=== PATIENT | male | born 1985 | race Caucasian/White ===

== ENCOUNTER 2018-09-29 16:48 | Observation (INO) ==
--- NOTE | 2018-09-29 17:11 | Emergency Department Note ---
Disposition Clinical Impression: Suicidal ideation Drug overdose Qualifiers: Encounter type: initial encounter Injury intent: intentional self-harm Qualifi ed Code(s): T50.902A - Poisoning by unspecified drugs, medicaments and biological substances, intentional self-harm, initial encounter Disposition: Admitted As Inpatient Condition: Good Time of Disposition: 22:50 General Adult HPI - General Chief complaint: ED Overdose Stated complaint: od Time Seen by Provider: 09/29/18 17:01 Source: patient, EMS Mode of arrival: EMS Limitations: altered mental status Nursing Notes Reviewed: Yes Vital Signs Reviewed: Yes - History of Present Illness HPI Narrative: Patient brought in for possible overdose. He states that he did use methamphetamine as well as possible FLACCA. Patient states he did this in an attempt to kill himself. Patient is hallucinating at this time. He states that he did smoke symmetric and a "bubble." He reports that he did have some chest pain prior to coming to the ER but denies this at this time. Patient has a flight of ideas. He says "watch this" and then lays back on the bed and hold his breath. He then abruptly sits up and alert everyone that he is Kahlil and he has come back from the . Pain Scale: 0 - Related Data Previous Rx's Medication Instructions Recorded Divalproex (12 HR) [Depakote (12 500 mg PO BID #60 tablet. 11/24/15 HR)] TraZODone 50 mg PO HS PRN #30 tablet 11/24/15 risperiDONE [RisperDAL] 1 mg PO BID #60 tablet 11/24/15 Azithromycin [Zithromax] 250 mg PO DAILY #6 tablet 08/23/16 Ondansetron ODT [Zofran ODT] 4 mg SL Q8HR #10 tab.rapdis 09/16/16 Allergies Allergy/AdvReac Type Severity Reaction Status Date / Time doxycycline AdvReac Hives Verified 08/23/16 08:46 All systems ED: reviewed and negative except as stated. Review of Systems: As Per HPI Cardiovascular: Reports: chest pain, palpitations Respiratory: Denies: dyspnea Psychiatric: Reports: suicidal thoughts, visual hallucinations Past Medical History - Past Medical History Attestation: Yes The following information was validated with the patient. Medical history: Reports: myocardial infarction, other Surgical history: Reports: no surgical history Psychiatric history: Reports: anxiety, bipolar, previous psychiatric hospitalization, other - Social History Smoking Status: Current every day smoker Smokeless Tobacco Status: No Alcohol use: Reports: rarely Drug use: Reports: cocaine, opiates, marijuana, methamphetamine Physical Exam - General Limitations: altered mental status General appearance: appears intoxicated, other - Head Head exam: atraumatic, normocephalic, normal inspection - Eye Eye exam: Present: normal appearance, PERRL, EOMI - ENT ENT exam: normal exam, normal oropharynx, mucous membranes moist - Neck Neck exam: Present: normal inspection, full ROM, trachea midline - Chest Chest inspection: Present: normal inspection, symmetric chest wall rise - Respiratory Respiratory exam: Present: normal lung sounds bilaterally. Absent: respiratory distress, accessory muscle use - Cardiovascular Cardiovascular exam: Present: regular rate, normal rhythm, normal heart sounds - Abdominal Exam Abdominal exam: Present: soft, Non-Tender. Absent: tenderness, distention, guarding, rebound, rigidity, organomegaly - Extremities Exam Extremities exam: Present: normal inspection, full ROM, normal capillary refill. Absent: tenderness, pedal edema - Neurological Exam Neurological exam: Present: alert - Psychiatric Psychiatric exam: Present: agitated, anxious, manic - Skin Skin exam: Present: warm, dry, intact, normal color. Absent: rash, diaphoresis Course Course Narrative: Basic lab evaluation and psychiatric evaluation on patient. We will provide patient with some Ativan at this time. We will also get an EKG and troponin secondary to pain he did have some chest pain prior to coming. Patient is pink slipped at this time for his suicidal attempt. He does have a history of bipolar and schizophrenia that he states that he self medicates for. - Reevaluation(s) Reevaluation #1: Patient accepted for admission by psychiatric team. We will omit patient to the hospital this time. Time: 22:50 Vital Signs Temperature 98.7 F 09/29/18 16:52 Pulse Rate 114 09/29/18 16:52 Respiratory Rate 20 09/29/18 16:52 Blood Pressure 155/100 09/29/18 16:52 O2 Sat by Pulse Oximetry 100 09/29/18 16:52 Temperature 98.7 F 09/29/18 16:52 Pulse Rate 84 09/29/18 18:00 Respiratory Rate 15 09/29/18 18:00 Blood Pressure 145/87 09/29/18 18:00 O2 Sat by Pulse Oximetry 97 09/29/18 18:00 Oxygen Delivery Oxygen Delivery Room Air Medical Decision Making - Medical Records Medical records reviewed: Yes I reviewed the patient's medical records. - Lab Data Lab results reviewed: Yes I reviewed the patient's lab results. Result diagrams: 09/29/18 17:27 09/29/18 17:27 Lab Results 09/29/18 09/29/18 09/29/18 Range/Units 17:12 17:20 17:23 WBC (4.3-11.1) K/mcL RBC (4.19-5.50) M/mcL Hgb (12.9-16.9) g/dL Hct (37.5-50.1) % MCV (83.0-100.0) fL MCH (28.0-33.3) pg MCHC (31.6-35.5) g/dL RDW (11.5-14.5) % Plt Count (140-400) K/mcL MPV (9.4-12.4) fL Immature Gran % (0-4) % Seg Neutrophils % % Lymphocytes % % Monocytes % % Eosinophils % % Basophils % % Neutrophils # (1.6-8.9) K/mcL Lymphocytes # (0.6-4.6) K/mcL Monocytes # (0.0-1.3) K/mcL Eosinophils # (0.0-0.6) K/mcL Basophils # (0.0-0.2) K/mcL Reactive Lymphocytes (Not Present) Sodium (136-145) mEq/L Potassium (3.5-5.1) mEq/L Chloride (98-107) mEq/L Carbon Dioxide (23-29) mEq/L BUN (6-20) mg/dL Creatinine (0.70-1.30) mg/dL Est GFR ( Amer) (> 60) Est GFR (Non-Af Amer) (> 60) BUN/Creatinine Ratio (6-26) Glucose (70-105) mg/dL POC Glucose 87 (70-99) mg/dL Calculated Osmolality (280-300) Calcium (8.6-10.3) mg/dL Total Bilirubin (0.3-1.0) mg/dL Direct Bilirubin (0.0-0.2) mg/dL Indirect Bilirubin (0.0-1.2) mg/dL AST (13-39) Units/L ALT (7-52) Units/L Alkaline Phosphatase (34-104) Units/L Troponin I (< 0.04) ng/mL Serum Total Protein (6.4-8.9) g/dL Albumin (3.5-5.7) g/dL Globulin (2.4-3.5) g/dL Albumin/Globulin Ratio (1.1-2.2) Urine Color Dark Yellow (Yellow) Urine Clarity Clear (Clear) Urine pH 6.5 (5.0-8.0) pH Units Ur Specific [place] 1.026 H (1.010-1.025) Urine Protein 30 H (Neg-Trace) mg/dL Urine Glucose (UA) Normal (Normal) mg/dL Urine Ketones 15 H (Negative) mg/dL Urine Blood Negative (Negative) Urine Nitrite Negative (Negative) Urine Bilirubin Small H (Negative) Urine Urobilinogen Normal (Normal) mg/dL Ur Leukocyte Esterase Negative (Negative) Urine Microscopic RBC 0-3 (0-3) per hpf Urine Microscopic WBC 0-3 (0-3) per hpf Ur Squamous Epith Cells Moderate H (None-Few) per lpf Urine Bacteria None Seen (None-Few) per hpf Hyaline Casts None Seen (None-Few) per lpf Salicylates (15.0-30.0) mg/dL Urine Opiates Screen Negative (Rjsira=704) ng/mL Acetaminophen (10-20) mcg/mL Ur Barbiturates Screen Negative (Gkbfnw=536) ng/mL Ur Phencyclidine Scrn Negative (Cutoff=25) ng/mL Ur Amphetamines Screen Positive H (Yqeabt=8742) ng/mL U Benzodiazepines Scrn Negative (Frslun=137) ng/mL Urine Cocaine Screen Negative (Cutoff= 300) ng/mL U Marijuana (THC) Screen Negative (Cutoff = 50) ng/mL Ur Drug Screen Interp See Below Ethyl Alcohol (Less than 10) mg/dL 09/29/18 09/29/18 Range/Units 17:27 17:27 WBC 13.0 H (4.3-11.1) K/mcL RBC 4.82 (4.19-5.50) M/mcL Hgb 14.5 (12.9-16.9) g/dL Hct 42.4 (37.5-50.1) % MCV 88.0 (83.0-100.0) fL MCH 30.1 (28.0-33.3) pg MCHC 34.2 (31.6-35.5) g/dL RDW 13.2 (11.5-14.5) % Plt Count 325 (140-400) K/mcL MPV 10.3 (9.4-12.4) fL Immature Gran % 0.3 (0-4) % Seg Neutrophils % 67.5 % Lymphocytes % 23.8 % Monocytes % 6.4 % Eosinophils % 1.2 % Basophils % 0.8 % Neutrophils # 8.8 (1.6-8.9) K/mcL Lymphocytes # 3.1 (0.6-4.6) K/mcL Monocytes # 0.8 (0.0-1.3) K/mcL Eosinophils # 0.2 (0.0-0.6) K/mcL Basophils # 0.1 (0.0-0.2) K/mcL Reactive Lymphocytes Present A (Not Present) Sodium 139 (136-145) mEq/L Potassium 4.1 (3.5-5.1) mEq/L Chloride 103 (98-107) mEq/L Carbon Dioxide 23 (23-29) mEq/L BUN 19 (6-20) mg/dL Creatinine 1.11 (0.70-1.30) mg/dL Est GFR ( Amer) > 60 (> 60) Est GFR (Non-Af Amer) > 60 (> 60) BUN/Creatinine Ratio 17 (6-26) Glucose 86 (70-105) mg/dL POC Glucose (70-99) mg/dL Calculated Osmolality 290 (280-300) Calcium 10.1 (8.6-10.3) mg/dL Total Bilirubin 1.2 H (0.3-1.0) mg/dL Direct Bilirubin 0.2 (0.0-0.2) mg/dL Indirect Bilirubin 1.0 (0.0-1.2) mg/dL AST 26 (13-39) Units/L ALT 18 (7-52) Units/L Alkaline Phosphatase 58 (34-104) Units/L Troponin I < 0.03 (< 0.04) ng/mL Serum Total Protein 7.5 (6.4-8.9) g/dL Albumin 4.8 (3.5-5.7) g/dL Globulin 2.7 (2.4-3.5) g/dL Albumin/Globulin Ratio 1.8 (1.1-2.2) Urine Color (Yellow) Urine Clarity (Clear) Urine pH (5.0-8.0) pH Units Ur Specific [place] (1.010-1.025) Urine Protein (Neg-Trace) mg/dL Urine Glucose (UA) (Normal) mg/dL Urine Ketones (Negative) mg/dL Urine Blood (Negative) Urine Nitrite (Negative) Urine Bilirubin (Negative) Urine Urobilinogen (Normal) mg/dL Ur Leukocyte Esterase (Negative) Urine Microscopic RBC (0-3) per hpf Urine Microscopic WBC (0-3) per hpf Ur Squamous Epith Cells (None-Few) per lpf Urine Bacteria (None-Few) per hpf Hyaline Casts (None-Few) per lpf Salicylates < 2.5 L (15.0-30.0) mg/dL Urine Opiates Screen (Gdeudm=158) ng/mL Acetaminophen < 10 L (10-20) mcg/mL Ur Barbiturates Screen (Rujzuz=944) ng/mL Ur Phencyclidine Scrn (Cutoff=25) ng/mL Ur Amphetamines Screen (Bkkbru=3393) ng/mL U Benzodiazepines Scrn (Ldldjg=174) ng/mL Urine Cocaine Screen (Cutoff= 300) ng/mL U Marijuana (THC) Screen (Cutoff = 50) ng/mL Ur Drug Screen Interp Ethyl Alcohol < 10 (Less than 10) mg/dL - EKG Data EKG #1 EKG attestation: Yes I reviewed and interpreted this EKG. EKG results narrative: Sinus tachycardia at a rate of 104. ME interval is 142. QRS duration is 85. QT is 333. QTC is 438. No signs of acute ischemia. Good R-wave progression. No signs of WPW or Brugada. No significant change from previous EKG dated 10/05/2010. Attestation Statement - Attestation Attestation: I, Oleg Hidalgo, examined this patient and my medical decision-making was reviewed with the G[employer] OPERATOR/PA/Advanced Practice Nurse/Resident Physician. I agree with the documented findings, disposition and treatment plan as described except to the extent set forth below. 32-year-old male presents emergency Department with acute psychosis. Patient believes that he is God and that he can dine come back to life at will. Patient multiple times during the initial evaluation and states "wait for "and then would drop his head down to his side and pretending to be . There is no change in his vital signs during these events. He with then wake up and say "I diabetic and came back to life" patient admitted to using methamphetamines and flakka prior to arrival. Patient denies homicidal ideation or suicidal ideation. Patient admits that he has a history of bipolar disorder and schizoaffective disorder. He states he does not take medications than that he "self medicates". Patient was redirectable during the examination. He will be medically cleared and evaluated by behavioral health. His drug abuse likely plays a large part in his acute psychosis.
[2018-09-29] MEDS ORDERED: *HR* LORazepam 2 MG/ML VIAL IVP STA (17:16)
[2018-09-29 17:47] LABS: Bilirubin,Urine Small (Negative); Blood,Urine Negative (Negative); Clarity,Urine Clear (Clear); Color,Urine Dark Yellow (Yellow); Glucose,Urine (UA) Normal (Normal); Ketones,Urine 15 mg/dL (Negative); Leukocyte Esterase,Urine Negative (Negative); Nitrite,Urine Negative (Negative); PH,Urine 6.5 pH Units (5.0-8.0); Protein,Urine 30 mg/dL (Neg-Trace); Specific Gravity,Urine 1.026 (1.010-1.025); Urobilinogen,Urine Normal (Normal)
[2018-09-29 17:48] LABS: Basophils # 0.1 K/mcL (0.0-0.2); Basophils % 0.8 %; Eosinophils # 0.2 K/mcL (0.0-0.6); Eosinophils % 1.2 %; Hematocrit 42.4 % (37.5-50.1); Hemoglobin 14.5 g/dL (12.9-16.9); Immature Granulocytes % 0.3 % (0-4); Lymphocytes # 3.1 K/mcL (0.6-4.6); Lymphocytes % 23.8 %; Mean Corpuscular HGB Conc 34.2 g/dL (31.6-35.5); Mean Corpuscular Hemoglobin 30.1 pg (28.0-33.3); Mean Platelet Volume 10.3 fL (9.4-12.4); Monocytes # 0.8 K/mcL (0.0-1.3); Monocytes % 6.4 %; Platelet Count 325 K/mcL (140-400); Red Blood Count 4.82 M/mcL (4.19-5.50); Red Cell Distribution Width 13.2 % (11.5-14.5); Segmented Neutrophils % 67.5 %
[2018-09-29 17:49] LABS: Neutrophils # 8.8 K/mcL (1.6-8.9)
[2018-09-29 17:50] LABS: Bacteria,Urine None Seen per hpf (None-Few); Hyaline Casts,Urine None Seen per lpf (None-Few); RBC,Urine 0-3 per hpf (0-3); Squamous Epithelial Cell,Urine Moderate per lpf (None-Few); WBC,Urine 0-3 per hpf (0-3)
[2018-09-29 18:01] LABS: Amphetamine Screen,Urine Positive ng/mL (Cutoff=1000); Barbiturate Screen,Urine Negative ng/mL (Cutoff=200); Benzodiazepines Screen,Urine Negative ng/mL (Cutoff=200); Cannabinoid Screen,Urine Negative ng/mL (Cutoff = 50); Cocaine Screen,Urine Negative ng/mL (Cutoff= 300); Opiate Screen,Urine Negative ng/mL (Cutoff=300); Phencyclidine Screen,Urine Negative ng/mL (Cutoff=25)
[2018-09-29 18:09] LABS: Acetaminophen < 10 mcg/mL (10-20); Alanine Aminotransferase 18 Units/L (7-52); Albumin 4.8 g/dL (3.5-5.7); Albumin/Globulin Ratio 1.8 (1.1-2.2); Alkaline Phosphatase 58 Units/L (34-104); Aspartate Amino Transferase 26 Units/L (13-39); BUN/Creatinine Ratio 17 (6-26); Bilirubin,Direct 0.2 mg/dL (0.0-0.2); Bilirubin,Total 1.2 mg/dL (0.3-1.0); Blood Urea Nitrogen 19 mg/dL (6-20); Calcium 10.1 mg/dL (8.6-10.3); Carbon Dioxide 23 mEq/L (23-29); Chloride 103 mEq/L (98-107); Ethanol < 10 mg/dL (Less than 10); Globulin 2.7 g/dL (2.4-3.5); Glucose 86 mg/dL (70-105); Osmolality,Calculated 290 (280-300); Potassium 4.1 mEq/L (3.5-5.1); Reactive Lymphocytes Present (Not Present); Salicylate < 2.5 mg/dL (15.0-30.0); Sodium 139 mEq/L (136-145); Total Protein 7.5 g/dL (6.4-8.9); Troponin I < 0.03 ng/mL (< 0.04); eGFR For Non-African Americans > 60 (> 60)
[2018-09-30] MEDS ORDERED: Haloperidol Lactate 5 MG/ML VIAL IM PRN (00:10)
[2018-09-30] MEDS ORDERED: traZODone 50 MG TABLET PO PRN (00:10)
[2018-09-30] MEDS ORDERED: MOM Conc 10 ML UD.LIQ PO PRN (00:10)
[2018-09-30] MEDS ORDERED: hydrOXYzine pamoate 25 MG CAPSULE PO PRN (00:10)
[2018-09-30] MEDS ORDERED: Ibuprofen 400 MG TABLET PO PRN (00:10)
[2018-09-30] MEDS ORDERED: Nicotine 2 MG GUM BC PRN (00:10)
[2018-09-30] MEDS ORDERED: *HR* LORazepam 2 MG/ML VIAL IM PRN (00:10)
[2018-09-30] MEDS ORDERED: *HR* LORazepam 1 MG TABLET PO PRN (00:10)
[2018-09-30] MEDS ORDERED: Mag Hydrox/Al Hydrox/Simeth 30 ML UDC PO PRN (00:10)
[2018-09-30 09:23] VITALS: BP 118/70
[2018-09-30] MEDS ORDERED: Divalproex (12 HR) 500 MG TABLET PO SCH (09:45)
--- NOTE | 2018-09-30 09:48 | Discharge Summary ---
Date of Encounter: 09/30/18 Time of Encounter: 09:45 History of Present Illness Chief complaint: "I took some bad meth" Admitted From: Emergency Dept History of Present Illness: Mr. Lou is a 32 year old male who presented to the ER s/p OD on drugs. At the time it was thought might have been an attempt to kill himself but now he denies this and said he was just trying to get high. He states that he did use methamphetamine as well as possible FLACCA. He was hallucinating when he came in to the emergency department. He states that he did smoke symmetric and a "bubble." He reports that he did have some chest pain prior to coming to the ER but denies this at this time. Patient in the emergency room had flight of ideas. He said "watch this" and then lays back on the bed and hold his breath. He then abruptly sits up and alert everyone that he is Kahlil and he has come back from the . Since being admitted to he has slapped and the drugs are clear from his system. He no longer has any delusions. He does not believe he is Kahlil Travis. He is not experiencing hallucinations. He is alert and oriented 4. He denies any suicidal thoughts, ideations, or plans. He is future oriented and says he has 3 children that he wants to live for. He is interested in getting clean from drugs but says he does not want linkage at this time as he would like to do it himself. We did discuss that this is difficult and it is advised to have resources which I gave him names but he said he did not want formal linkage. No homicidal ideations. Past Med Surg Social Fam HX - Past Medical History Medical history: myocardial infarction, other - Past Psychiatric History Psychiatric history: Reports: bipolar, prior suicide attempt, previous psychiatric hospitalization Past psychiatric history details: He has had several prior hospitalizations most recently he was sent from the medical floor to [address] [place] [address] in August 2018. He said he has been taking Depakote and Risperdal since that time. He reports he is linked with [place] counseling. He reports one prior suicide attempt at age 18 when he tried to hang himself related to breakup with a girlfriend. On other medications in the past including Lamictal and vague and Seroquel. He feels his current medications work well and keep him stable when he is not using drugs. Family psychiatric history: No Family History of Suicide: None - Past Surgical History Surgical History: no surgical history - Social History Smoking Status: Current every day smoker Packs per day: 1 Smokeless Tobacco Status: No Alcohol use: rarely Drug use: cocaine, opiates, marijuana, methamphetamine Occupational status: unemployed Current living situation: Home Activity Level: Independent ambulation Recent Out of Country Travel Within the Last 8 Weeks: No Exposure or Possible Exposure to Illness During Travel: No Additional social history: He has an apartment. He has 3 children. He is not . He is unemployed. Medications - Discharge Medications Prescriptions: Divalproex (12 HR) [Depakote (12 HR)] 500 mg PO BID #60 tablet. risperiDONE [RisperDAL] 1 mg PO BID #60 tablet Ondansetron ODT [Zofran ODT] 4 mg SL Q8HR #10 tab.[email or web address] 09/16/16 [Rx] Divalproex (12 HR) [Depakote (12 HR)] 500 mg PO BID #60 tablet. 09/30/18 [Rx] risperiDONE [RisperDAL] 1 mg PO BID #60 tablet 09/30/18 [Rx] Allergy/AdvReac Type Severity Reaction Status Date / Time doxycycline AdvReac Hives Verified 08/23/16 08:46 Review of Systems Constitutional: Denies: fever Eyes: Denies: eye pain Ears, Nose, Throat: Denies: ear pain Cardiovascular: Denies: chest pain Respiratory: Denies: cough Gastrointestinal: Denies: abdominal pain Genitourinary male: Denies: urgency Musculoskeletal: Reports: joint pain. Denies: back pain Integumentary: Denies: rash Neurological: Denies: headache Psychiatric: Reports: confusion (Confusion and delusions when he came in but not presently.) Endocrine: Denies: fatigue, heat or cold intolerance Hematologic/Lymphatic: Denies: easy bruising, lymphadenopathy Allergic/Immunologic: Denies: urticaria, itchy eyes Exam - HEENT Head exam IM: Present: atraumatic Eye exam IM: Present: normal appearance ENT exam IM: Present: mucous membranes moist - Neurological Neurological exam: Present: CN II-XII intact (Grossly), no focal deficits - Respiratory Respiratory exam IM: Absent: respiratory distress - GI/Abdominal GI/Abdominal exam IM: Absent: no peritoneal signs - Extremities Extremities exam IM: Present: full ROM - Skin Skin exam IM: Present: abrasion (Dirty with old scabs on his knuckles). Absent: cyanosis - Constitutional Vitals: Temp Pulse Resp BP Pulse Ox 97.4 F L 104 18 118/70 100 09/30/18 09:00 09/30/18 09:00 09/30/18 09:00 09/30/18 09:00 09/30/18 09:00 General appearance: disheveled, malodorous - Musculoskeletal Gait: normal Station: relaxed Strength & Tone: normal for patient - Psychiatric Patient Orientation: Yes Person, Yes Time, Yes Place Level of alertness: Alert Behavior: calm, cooperative Psychomotor activity: Normal Eye Contact: Maintains Eye Contact Mood Description: Euthymic/stable Patient description of mood: "Okay" Affect description: congruent with mood, full range Speech Volume: Normal Speech pattern: normal rate, normal rhythm, normal tone, fluent, spontaneous Language & Vocabulary: consistent with education Thought Process: Linear, Goal Oriented Thought Content: No Suicidal ideation, No Homicidal ideation, No Overt delusions Perceptual Disturbances: No Auditory hallucinations, No Visual hallucinations Attention Span Ability: Capable of Focused Attention Memory Description: Grossly Intact Patient Reliability: Reliable Historian Fund of knowledge: Yes abstraction ability, Yes average, Yes aware of current events Intelligence Estimate: Average Judgment: Good Insight: Full Results - Drug Levels and Toxicology Drug Levels and Toxicology: Drug Levels and Toxicity 09/29/18 09/29/18 17:20 17:27 Urine Opiates Screen Negative Acetaminophen < 10 L Ur Barbiturates Screen Negative Ur Phencyclidine Scrn Negative Ur Amphetamines Screen Positive H U Benzodiazepines Scrn Negative Urine Cocaine Screen Negative U Marijuana (THC) Screen Negative Ethyl Alcohol < 10 Abnormal Labs 09/29/18 09/29/18 09/29/18 17:12 17:20 17:27 WBC 13.0 H Reactive Lymphocytes Present A Total Bilirubin Ur Specific Closter 1.026 H Urine Protein 30 H Urine Ketones 15 H Urine Bilirubin Small H Ur Squamous Epith Cells Moderate H Salicylates Acetaminophen Ur Amphetamines Screen Positive H 09/29/18 17:27 WBC Reactive Lymphocytes Total Bilirubin 1.2 H Ur Specific Closter Urine Protein Urine Ketones Urine Bilirubin Ur Squamous Epith Cells Salicylates < 2.5 L Acetaminophen < 10 L Ur Amphetamines Screen Laboratory Results - last 72 hr 09/29/18 09/29/18 09/29/18 17:12 17:20 17:23 WBC RBC Hgb Hct MCV MCH MCHC RDW Plt Count MPV Immature Gran % Seg Neutrophils % Lymphocytes % Monocytes % Eosinophils % Basophils % Neutrophils # Lymphocytes # Monocytes # Eosinophils # Basophils # Reactive Lymphocytes Sodium Potassium Chloride Carbon Dioxide BUN Creatinine Est GFR ( Amer) Est GFR (Non-Af Amer) BUN/Creatinine Ratio Glucose POC Glucose 87 Calculated Osmolality Calcium Total Bilirubin Direct Bilirubin Indirect Bilirubin AST ALT Alkaline Phosphatase Troponin I Serum Total Protein Albumin Globulin Albumin/Globulin Ratio Urine Color Dark Yellow Urine Clarity Clear Urine pH 6.5 Ur Specific Closter 1.026 H Urine Protein 30 H Urine Glucose (UA) Normal Urine Ketones 15 H Urine Blood Negative Urine Nitrite Negative Urine Bilirubin Small H Urine Urobilinogen Normal Ur Leukocyte Esterase Negative Urine Microscopic RBC 0-3 Urine Microscopic WBC 0-3 Ur Squamous Epith Cells Moderate H Urine Bacteria None Seen Hyaline Casts None Seen Salicylates Urine Opiates Screen Negative Acetaminophen Ur Barbiturates Screen Negative Ur Phencyclidine Scrn Negative Ur Amphetamines Screen Positive H U Benzodiazepines Scrn Negative Urine Cocaine Screen Negative U Marijuana (THC) Screen Negative Ur Drug Screen Interp See Below Ethyl Alcohol 09/29/18 09/29/18 17:27 17:27 WBC 13.0 H RBC 4.82 Hgb 14.5 Hct 42.4 MCV 88.0 MCH 30.1 MCHC 34.2 RDW 13.2 Plt Count 325 MPV 10.3 Immature Gran % 0.3 Seg Neutrophils % 67.5 Lymphocytes % 23.8 Monocytes % 6.4 Eosinophils % 1.2 Basophils % 0.8 Neutrophils # 8.8 Lymphocytes # 3.1 Monocytes # 0.8 Eosinophils # 0.2 Basophils # 0.1 Reactive Lymphocytes Present A Sodium 139 Potassium 4.1 Chloride 103 Carbon Dioxide 23 BUN 19 Creatinine 1.11 Est GFR ( Amer) > 60 Est GFR (Non-Af Amer) > 60 BUN/Creatinine Ratio 17 Glucose 86 POC Glucose Calculated Osmolality 290 Calcium 10.1 Total Bilirubin 1.2 H Direct Bilirubin 0.2 Indirect Bilirubin 1.0 AST 26 ALT 18 Alkaline Phosphatase 58 Troponin I < 0.03 Serum Total Protein 7.5 Albumin 4.8 Globulin 2.7 Albumin/Globulin Ratio 1.8 Urine Color Urine Clarity Urine pH Ur Specific Closter Urine Protein Urine Glucose (UA) Urine Ketones Urine Blood Urine Nitrite Urine Bilirubin Urine Urobilinogen Ur Leukocyte Esterase Urine Microscopic RBC Urine Microscopic WBC Ur Squamous Epith Cells Urine Bacteria Hyaline Casts Salicylates < 2.5 L Urine Opiates Screen Acetaminophen < 10 L Ur Barbiturates Screen Ur Phencyclidine Scrn Ur Amphetamines Screen U Benzodiazepines Scrn Urine Cocaine Screen U Marijuana (THC) Screen Ur Drug Screen Interp Ethyl Alcohol < 10 - Labs Labs: Laboratory Last Values WBC 13.0 K/mcL (4.3-11.1) H 09/29/18 17:27 RBC 4.82 M/mcL (4.19-5.50) 09/29/18 17:27 Hgb 14.5 g/dL (12.9-16.9) 09/29/18 17:27 Hct 42.4 % (37.5-50.1) 09/29/18 17:27 MCV 88.0 fL (83.0-100.0) 09/29/18 17:27 MCH 30.1 pg (28.0-33.3) 09/29/18 17:27 MCHC 34.2 g/dL (31.6-35.5) 09/29/18 17:27 RDW 13.2 % (11.5-14.5) 09/29/18 17:27 Plt Count 325 K/mcL (140-400) 09/29/18 17:27 MPV 10.3 fL (9.4-12.4) 09/29/18 17:27 Immature Gran % 0.3 % (0-4) 09/29/18 17:27 Seg Neutrophils % 67.5 % 09/29/18 17:27 Lymphocytes % 23.8 % 09/29/18 17:27 Monocytes % 6.4 % 09/29/18 17:27 Eosinophils % 1.2 % 09/29/18 17:27 Basophils % 0.8 % 09/29/18 17:27 Neutrophils # 8.8 K/mcL (1.6-8.9) 09/29/18 17:27 Lymphocytes # 3.1 K/mcL (0.6-4.6) 09/29/18 17:27 Monocytes # 0.8 K/mcL (0.0-1.3) 09/29/18 17:27 Eosinophils # 0.2 K/mcL (0.0-0.6) 09/29/18 17:27 Basophils # 0.1 K/mcL (0.0-0.2) 09/29/18 17:27 Reactive Lymphocytes Present (Not Present) A 09/29/18 17:27 Sodium 139 mEq/L (136-145) 09/29/18 17:27 Potassium 4.1 mEq/L (3.5-5.1) 09/29/18 17:27 Chloride 103 mEq/L (98-107) 09/29/18 17:27 Carbon Dioxide 23 mEq/L (23-29) 09/29/18 17:27 BUN 19 mg/dL (6-20) 09/29/18 17:27 Creatinine 1.11 mg/dL (0.70-1.30) 09/29/18 17:27 Est GFR ( Amer) > 60 (> 60) 09/29/18 17:27 Est GFR (Non-Af Amer) > 60 (> 60) 09/29/18 17:27 BUN/Creatinine Ratio 17 (6-26) 09/29/18 17:27 Glucose 86 mg/dL (70-105) 09/29/18 17:27 POC Glucose 87 mg/dL (70-99) 09/29/18 17:23 Calculated Osmolality 290 (280-300) 09/29/18 17:27 Calcium 10.1 mg/dL (8.6-10.3) 09/29/18 17:27 Total Bilirubin 1.2 mg/dL (0.3-1.0) H 09/29/18 17:27 Direct Bilirubin 0.2 mg/dL (0.0-0.2) 09/29/18 17:27 Indirect Bilirubin 1.0 mg/dL (0.0-1.2) 09/29/18 17:27 AST 26 Units/L (13-39) 09/29/18 17:27 ALT 18 Units/L (7-52) 09/29/18 17:27 Alkaline Phosphatase 58 Units/L (34-104) 09/29/18 17:27 Troponin I < 0.03 ng/mL (< 0.04) 09/29/18 17:27 Serum Total Protein 7.5 g/dL (6.4-8.9) 09/29/18 17:27 Albumin 4.8 g/dL (3.5-5.7) 09/29/18 17:27 Globulin 2.7 g/dL (2.4-3.5) 09/29/18 17:27 Albumin/Globulin Ratio 1.8 (1.1-2.2) 09/29/18 17:27 Urine Color Dark Yellow (Yellow) 09/29/18 17:12 Urine Clarity Clear (Clear) 09/29/18 17:12 Urine pH 6.5 pH Units (5.0-8.0) 09/29/18 17:12 Ur Specific Closter 1.026 (1.010-1.025) H 09/29/18 17:12 Urine Protein 30 mg/dL (Neg-Trace) H 09/29/18 17:12 Urine Glucose (UA) Normal mg/dL (Normal) 09/29/18 17:12 Urine Ketones 15 mg/dL (Negative) H 09/29/18 17:12 Urine Blood Negative (Negative) 09/29/18 17:12 Urine Nitrite Negative (Negative) 09/29/18 17:12 Urine Bilirubin Small (Negative) H 09/29/18 17:12 Urine Urobilinogen Normal mg/dL (Normal) 09/29/18 17:12 Ur Leukocyte Esterase Negative (Negative) 09/29/18 17:12 Urine Microscopic RBC 0-3 per hpf (0-3) 09/29/18 17:12 Urine Microscopic WBC 0-3 per hpf (0-3) 09/29/18 17:12 Ur Squamous Epith Cells Moderate per lpf (None-Few) H 09/29/18 17:12 Urine Bacteria None Seen per hpf (None-Few) 09/29/18 17:12 Hyaline Casts None Seen per lpf (None-Few) 09/29/18 17:12 Salicylates < 2.5 mg/dL (15.0-30.0) L 09/29/18 17:27 Urine Opiates Screen Negative ng/mL (Cieaul=956) 09/29/18 17:20 Acetaminophen < 10 mcg/mL (10-20) L 09/29/18 17:27 Ur Barbiturates Screen Negative ng/mL (Oucjpb=994) 09/29/18 17:20 Ur Phencyclidine Scrn Negative ng/mL (Cutoff=25) 09/29/18 17:20 Ur Amphetamines Screen Positive ng/mL (Uziuks=9889) H 09/29/18 17:20 U Benzodiazepines Scrn Negative ng/mL (Nblgob=446) 09/29/18 17:20 Urine Cocaine Screen Negative ng/mL (Cutoff= 300) 09/29/18 17:20 U Marijuana (THC) Screen Negative ng/mL (Cutoff = 50) 09/29/18 17:20 Ur Drug Screen Interp See Below 09/29/18 17:20 Ethyl Alcohol < 10 mg/dL (Less than 10) 09/29/18 17:27 Diagnosis - Discharge Diagnosis (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 We will discharge him back home with continued follow-up at [facility]. We did discuss getting him to get into formal drug treatment but he was not interested at this time. We discussed risk benefit side effects of different options and not getting treatment. - Follow up Plan Follow up with: NONE,PCP [Primary Care Provider] - Functional capacity at discharge: independent ambulation Overall status at discharge: Stable Disposition: Home, Self-Care Provider Date of admission: 09/29/18 22:58 Primary care physician: PCP NONE Discharging clinician: Laxmi Castano Hospital Course Hospital course: Mr. Lou is a 32 year old male who was admitted for substance-induced psychosis. Once the substances that out of his system he was clear with no psychotic symptoms no suicidal or homicidal thoughts. He said he had not taken the drugs and attempt to overdose but just to get high. He did on his home psychotropic medications of Seroquel and Risperdal.Patient was educated of diagnosis and the risk-benefit side effects of this alternative treatment options and was monitored for responsiveness and side effects. Mood anxiety sleep and appetite interest improved as did future orientation. Self-harm thoughts subsided, thinking cleared, psychosis resolved, and mood stabilized. Patient was able to attend both individual and group therapy sessions as well as meet with the psychiatrist daily and urged to discuss any medication or treatment issues or other concerns. The patient was educated primarily by verbal means about their diagnosis and manifestations in their life. The option for treatment including group and individual therapy programming was offered to the patient in addition to the use of medications with all their potential risks, benefits, and side effects as well as the risks of not taking medication and non-adhereance were discussed with the patient at length. The patient was given the opportunity to ask questions and was noted to participate in the treatment in the planning process. The patient felt ready and eager to be discharged from the inpatient psychiatric unit to continue on with treatment as an outpatient. The patient agreed that is they were safe for this disposition. The patient was considered to be able to participate in informed consent and decision making with respect to medical, legal, and financial issues of the time of discharge. At the time of discharge the patient adamantly denied any concerns for lethality including suicidal or homicidal thoughts ideations or plans and was future oriented toward ongoing mental health care, medical follow-up and sobriety. Time spent discussing smoking cessation with patient: 3 to 10 minutes Does patient wish to continue nicotine replacement upon disc: No - Time Spent with Patient Total time spent providing and/or coordinating discharge services: 45 Greater than 30 minutes Specific discharge activities: Interval history reviewed. Available labs reviewed . Psychotherapy provided. Patient had an opportunity to ask questions and address concerns. Patient was in agreement with the treatment plan. The risks benefits and side effects of medications were discussed with the patient, including alternatives and treatment. The patient was educated on the abstaining from any alcohol or illicit substances, following up with all scheduled appointments, and taking all medications as prescribed. The patient was educated on 90 meetings in 90 days and to find a sponsor. Procedures - Procedures Procedures: Medication Management, Crisis Stabilization, Supportive Therapy, Group Therapy, Psychoeducational Therapy Quality - Multiple Antipsychotics Patient discharged on 2 or more antipsychotic medications: No
[2018-09-30] MEDS ORDERED: risperiDONE 1 MG TABLET PO SCH (21:00)
--- NOTE | 2018-10-01 10:49 | Electrocardiograph Report ---
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
== END 2018-09-30 11:05 | disposition home or self-care (01) ==
LOC: 1ANU 16:48 → EMEROOARM 16:48 → 1ANU 23:59
PROVIDERS: ADMIT Psychiatry & Neurology Psychiatry; ATTEND Psychiatry & Neurology Psychiatry

== ENCOUNTER 2019-08-02 17:12 | Inpatient (IN) ==
[2019-08-02 17:46] LABS: Bilirubin,Urine Negative (Negative); Blood,Urine Negative (Negative); Clarity,Urine Clear (Clear); Color,Urine Yellow (Yellow); Glucose,Urine (UA) Normal (Normal); Ketones,Urine Negative (Negative); Leukocyte Esterase,Urine Negative (Negative); Nitrite,Urine Negative (Negative); Protein,Urine Negative (Neg-Trace); Specific Gravity,Urine 1.021 (1.010-1.025); Urobilinogen,Urine Normal (Normal)
[2019-08-02 17:53] LABS: Amphetamine Screen,Urine Negative ng/mL (Cutoff=1000); Barbiturate Screen,Urine Negative ng/mL (Cutoff=200); Benzodiazepines Screen,Urine Negative ng/mL (Cutoff=200); Cannabinoid Screen,Urine Negative ng/mL (Cutoff = 50); Cocaine Screen,Urine Negative ng/mL (Cutoff= 300); Opiate Screen,Urine Negative ng/mL (Cutoff=300); Phencyclidine Screen,Urine Negative ng/mL (Cutoff=25)
[2019-08-02 18:09] LABS: Basophils # 0.1 K/mcL (0.0-0.2); Basophils % 0.8 %; Eosinophils # 0.3 K/mcL (0.0-0.6); Eosinophils % 2.4 %; Hematocrit 43.7 % (37.5-50.1); Hemoglobin 14.7 g/dL (12.9-16.9); Immature Granulocytes % 0.3 % (0-4); Lymphocytes # 2.5 K/mcL (0.6-4.6); Lymphocytes % 23.9 %; Mean Corpuscular HGB Conc 33.6 g/dL (31.6-35.5); Mean Corpuscular Volume 92.2 fL (83.0-100.0); Mean Platelet Volume 10.6 fL (9.4-12.4); Monocytes # 0.6 K/mcL (0.0-1.3); Monocytes % 5.7 %; Neutrophils # 6.8 K/mcL (1.6-8.9); Platelet Count 265 K/mcL (140-400); Red Blood Count 4.74 M/mcL (4.19-5.50); Red Cell Distribution Width 13.2 % (11.5-14.5); Segmented Neutrophils % 66.9 %; White Blood Count 10.2 K/mcL (4.3-11.1)
[2019-08-02 18:27] LABS: Estimated Average Glucose 123 mg/dl
[2019-08-02 18:40] LABS: Acetaminophen < 10 mcg/mL (10-20); Alanine Aminotransferase 9 Units/L (7-52); Albumin 4.5 g/dL (3.5-5.7); Albumin/Globulin Ratio 1.8 (1.1-2.2); Alkaline Phosphatase 55 Units/L (34-104); Aspartate Amino Transferase 15 Units/L (13-39); BUN/Creatinine Ratio 12 (6-26); Bilirubin,Direct 0.1 mg/dL (0.0-0.2); Bilirubin,Indirect 0.1 mg/dL (0.0-1.0); Bilirubin,Total 0.2 mg/dL (0.3-1.0); Blood Urea Nitrogen 12 mg/dL (6-20); Calcium 9.6 mg/dL (8.6-10.3); Carbon Dioxide 29 mEq/L (23-29); Chloride 101 mEq/L (98-107); Chol/HDL Ratio 4.1 (0-4.9); Cholesterol 153 mg/dL (< 200); Ethanol < 10 mg/dL (Less than 10); Globulin 2.5 g/dL (2.4-3.5); Glucose 114 mg/dL (70-105); HDL Cholesterol 37 mg/dL (40-59); LDL Cholesterol,Calculated 86 mg/dL (0-99); Osmolality,Calculated 293 (280-300); Potassium 4.4 mEq/L (3.5-5.1); Salicylate < 2.5 mg/dL (15.0-30.0); Sodium 141 mEq/L (136-145); Triglycerides 150 mg/dL (< 150); eGFR For African Americans > 60 (> 60); eGFR For Non-African Americans > 60 (> 60)
[2019-08-02 18:47] LABS: Thyroid Stimulating Hormone 1.683 mcIU/mL (0.340-5.600)
[2019-08-02] MEDS ORDERED: Acetaminophen 325 MG TABLET PO PRN (19:48)
[2019-08-02] MEDS ORDERED: MOM Conc 10 ML UD.LIQ PO PRN (19:48)
[2019-08-02] MEDS ORDERED: *HR* LORazepam 1 MG TABLET PO PRN (19:48)
[2019-08-02] MEDS ORDERED: *HR* LORazepam 2 MG/ML VIAL IM PRN (19:48)
[2019-08-02] MEDS ORDERED: Haloperidol Lactate 5 MG/ML VIAL IM PRN (19:48)
[2019-08-02] MEDS ORDERED: Mag Hydrox/Al Hydrox/Simeth 30 ML UDC PO PRN (19:48)
[2019-08-02] MEDS: OLANZapine 10 MG TAB.RAPDIS PO SCH (21:26)
[2019-08-02] MEDS: hydrOXYzine pamoate 25 MG CAPSULE PO PRN (21:26)
[2019-08-02] MEDS: QUEtiapine Fumarate 25 MG TABLET PO PRN (21:26)
[2019-08-03] MEDS: Nicotine 2 MG GUM BC PRN ×2 (09:41→13:54)
[2019-08-03] MEDS: OLANZapine 10 MG TAB.RAPDIS PO SCH (20:47)
[2019-08-03] MEDS: hydrOXYzine pamoate 25 MG CAPSULE PO PRN (20:48)
[2019-08-03] MEDS: QUEtiapine Fumarate 25 MG TABLET PO PRN (20:48)
[2019-08-04] MEDS: Nicotine 2 MG GUM BC PRN ×3 (08:46→15:56)
[2019-08-04] MEDS: QUEtiapine Fumarate 25 MG TABLET PO PRN (20:32)
[2019-08-04] MEDS: hydrOXYzine pamoate 25 MG CAPSULE PO PRN (20:32)
[2019-08-04] MEDS ORDERED: OLANZapine 10 MG TAB.RAPDIS PO SCH (21:00)
[2019-08-05] MEDS: Nicotine 2 MG GUM BC PRN ×2 (09:54→15:44)
[2019-08-05] MEDS ORDERED: OLANZapine 10 MG TAB.RAPDIS PO SCH (21:00)
[2019-08-05] MEDS: hydrOXYzine pamoate 25 MG CAPSULE PO PRN (21:45)
[2019-08-05] MEDS: QUEtiapine Fumarate 25 MG TABLET PO PRN (21:45)
[2019-08-06 09:55] VITALS: BP 112/72
[2019-08-06] MEDS: Nicotine 2 MG GUM BC PRN (10:21)
== END 2019-08-06 13:35 | disposition home or self-care (01) | DRG 750 ==
LOC: 1ANU 17:12 → EMEROOARM 17:12 → SUATTDRO 19:48 → 1ANU 19:50
PROVIDERS: ADMIT Psychiatry & Neurology Psychiatry; ATTEND Psychiatry & Neurology Psychiatry